=== PATIENT | male | born 1985 | race Caucasian/White ===

== ENCOUNTER 2019-06-08 19:05 | Emergency (ER) | payer OTHER ==
[~2019-06-08] VITALS: Ht 172.7 cm; Wt 89.4 kg
[2019-06-08 19:10] VITALS: BP 164/84
--- NOTE | 2019-06-08 19:27 | NUR ---
1ST CALL TO [facility] DUKES, NO ANSWER
--- NOTE | 2019-06-08 19:36 | NUR ---
PT RETURNED FROM XRAY
--- NOTE | 2019-06-08 19:37 | NUR ---
PT TAKEN TO BED 8
[2019-06-08 19:40] VITALS: BP 164/84
--- NOTE | 2019-06-08 19:40 | NUR ---
33 Y/O M PRESENTS TO ED WITH C/O LUNG PAIN [id number] AND HEMOPTYSIS X1 DAY. PT REPORTS VAPING OVER A MONTH AGO AND LUNG PAIN STARTED AFTERWARDS WITH HEMOPTYSIS STARTING TODAY. PT STATED DULL RED BLOOD. PT NOT ACTIVELY COUGHING UP BLOOD AT THIS TIME. PT DENIES TRAVELLING OUTSIDE [place], SICK CONTACTS, DIFFICULTY BREATHING. BILATERAL LUNG QUINN CLEAR THROUGHOUT. O2 SATURATION AT 99%. BEDRAIL X1 UP. WILL CONTINUE TO MONITOR.
--- NOTE | 2019-06-08 20:58 | NUR ---
Patient discharged with v/s stable. Written and verbal after care instructions given and explained. Patient verbalized understanding. Ambulatory with steady gait. All questions addressed prior to discharge. Advised to follow up with PMD.
== END 2019-06-08 20:58 | disposition home or self-care (01) ==
LOC: MED 19:05
DX: R04.2 Hemoptysis (principal); Z87.891 Personal history of nicotine dependence
CPT/HCPCS: 71045; 99283

== ENCOUNTER 2022-09-10 08:37 | Emergency (ER) | payer OTHER ==
[~2022-09-10] VITALS: Ht 172.7 cm; Wt 89.4 kg
[2022-09-10 08:47] VITALS: BP 132/85
--- NOTE | 2022-09-10 08:51 | NUR ---
36 y/o male bib self from home, c/o left sided rib pain since last night around 1900 in relation to mechanical trip and fall. denies loc, syncope, head/neck trauma, n/v/d, sob, fever, chills. 9/10 pain at this time. a&ox4, ambulates with steady gait. ermd made aware of pt status. pmh: denies nka med: denies
[2022-09-10] MEDS ORDERED: KETOROLAC 30 MG/ML VIAL IM ONE (10:10)
[2022-09-10] MEDS ORDERED: ACET-5629 PO (10:12)
[2022-09-10] MEDS ORDERED: LID5T TP (10:12)
[2022-09-10] MEDS ORDERED: KETOROLAC 30 MG/ML VIAL ONE (10:15)
== END 2022-09-10 10:20 | disposition home or self-care (01) ==
LOC: MED 08:37
DX: S22.42XA Multiple fractures of ribs, left side, initial encounter for closed fracture (principal); J93.83 Other pneumothorax; Z79.899 Other long term (current) drug therapy; W01.198A Fall on same level from slipping, tripping and stumbling with subsequent striking against other object, initial encounter; Y93.02 Activity, running; Y92.89 Other specified places as the place of occurrence of the external cause; Y99.8 Other external cause status
CPT/HCPCS: 71101; 94760; 96372; 99283; J1885

== ENCOUNTER 2022-09-11 09:58 | Emergency (ER) | payer OTHER ==
[~2022-09-11] VITALS: Ht 172.7 cm; Wt 87.7 kg
[~2022-09-11 09:58] MED LIST: ACET-5629 PO; LID5T TP
[2022-09-11 10:16] VITALS: BP 131/86
--- NOTE | 2022-09-11 10:20 | NUR ---
PT AMB TO BED 10
[2022-09-11] MEDS ORDERED: KETOROLAC 15 MG/ML VIAL IM ONE (10:50)
[2022-09-11] MEDS ORDERED: LIDOCAINE 5% 1 EA PATCH TP SCH (10:50)
--- NOTE | 2022-09-11 11:38 | NUR ---
PER DR. COLLIER PATIENT PLACED ON 15L NRB, PATIENT TOLERATING WELL, O2 SAT 99%
--- NOTE | 2022-09-11 12:00 | NUR ---
36/M PRESENTS TO ED WITH C/O LEFT SIDED RIB PAIN, PATIENT WAS SEEN HERE YESTERDAY S/P TRIP AND FALL ONTO [place]OCKS AT HOME AND WAS DX WITH PARTIAL PNEUMOTHORAX AND FRACTURED RIBS. PATIENT STATES HE WAS ADVISED TO RETURN TODAY FOR FOLLOW UP, DENIES NEW SYMPTOMS, STATES 9/10 PAIN WHEN WALKING AND MOVEMENT. PATIENT DENIES SOB, O2 99%, PATIENT PLACED ON 15L NRB PER DR. 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
[2022-09-11 14:08] VITALS: BP 120/88
--- NOTE | 2022-09-11 14:08 | NUR ---
Patient discharged with v/s stable. Written and verbal after care instructions ABOUT HOW TO USE AN INCENTIVE SPIROMETER, PNEUMOTHORAX given and explained. Patient verbalized understanding. Ambulatory with steady gait. All questions addressed prior to discharge. Advised to follow up with PMD.
== END 2022-09-11 14:08 | disposition home or self-care (01) ==
LOC: MED 09:58
DX: S22.42XA Multiple fractures of ribs, left side, initial encounter for closed fracture (principal); R07.9 Chest pain, unspecified; W18.30XA Fall on same level, unspecified, initial encounter; Y93.89 Activity, other specified; Y92.89 Other specified places as the place of occurrence of the external cause; Y99.8 Other external cause status
CPT/HCPCS: 71046; 96372; 99283; J1885